=== PATIENT | male | born 1980 | race Caucasian/White ===

== ENCOUNTER 2024-11-28 18:00 | Inpatient (IN) ==
[2024-11-28] MEDS: SODIUM CHLORIDE 0.9% 1,000 ML IV SCH (18:41)
[2024-11-28 18:42] LABS: Appearance Urine Clear (Clear); Glucose Urine UA Negative (Negative)
[2024-11-28 19:49] LABS: Chlamydia pneumoniae PCR Not Detected (NotDetected); Coronavirus 229E PCR Not Detected (NotDetected); Coronavirus CoV-2 (COVID19)PCR Not Detected (NotDetected); Coronavirus HKU1 PCR Not Detected (NotDetected); Coronavirus NL63 PCR Not Detected (NotDetected); Coronavirus OC43PCR Not Detected (NotDetected); Human Metapneumovirus PCR Not Detected (NotDetected); Parainfluenza Virus 1 PCR Not Detected (NotDetected); Parainfluenza Virus 2 PCR Not Detected (NotDetected); Parainfluenza Virus 3 PCR Not Detected (NotDetected); Parainfluenza Virus 4 PCR Not Detected (NotDetected); Respiratory Syncytial VirusPCR Not Detected (NotDetected); Rhinovirus/Enterovirus PCR Not Detected (NotDetected)
[2024-11-28 19:50] LABS: Base Excess VBG 4.4 mEq/L; HCO3 VBG 29 mmol/L; Oxygen Saturation VBG < 60.0 %; PCO2 VBG 43 mmHg (38-50); PO2 VBG 31 mmHg; pH VBG 7.44 (7.36-7.41)
[2024-11-28 19:58] LABS: Hematocrit (blood only) 41.5 % (42.0-52.0); Hemoglobin 14.5 g/dl (14.0-18.0); Immature Granulocytes # (auto) 0.16 K/uL (0.01-0.20); Immature Granulocytes % (auto) 1.0 %; Mean Corpuscular Hemoglobin 27.3 pg (25.0-34.0); Mean Corpuscular Volume 78.0 fL (80.0-100.0); Platelet Count 170 K/uL (130-400); RDW Standard Deviation 38.2 fL (36.4-46.3); Red Blood Count 5.32 M/uL (4.70-6.10); White Blood Count 15.71 K/ul (4.8-10.8)
--- NOTE | 2024-11-28 20:10 | XRay Report ---
EXAM: Portable AP chest radiograph TECHNIQUE: AP portable radiograph of the chest was obtained. INDICATION: Shortness of breath Comparison: None FINDINGS: LINES and TUBES: None CARDIOVASCULAR: Cardiac silhouette is mildly enlarged in size. LUNGS/PLEURA: No focal consolidation identified. Mild central pulmonary vascular congestion. Patchy left greater than right bibasilar densities may represent atelectasis though difficult to exclude mild pneumonia. No significant pleural fluid. No discernible pneumothorax. OSSEOUS/OTHER: No displaced acute osseous process identified. IMPRESSION: Patchy left greater than right bibasilar densities may represent atelectasis though difficult to exclude mild pneumonia. Electronically signed by Ren Monahan 11-28-2024 8:10 PM
[2024-11-28 20:17] LABS: Alanine Aminotransferase 42.0 U/L (7-52); Albumin Level 4.5 gm/dl (3.4-5.0); Alkaline Phosphatase 85.0 U/L (34-104); Anion Gap 9.0 (3-11); Bilirubin,Total 0.7 mg/dl (0.2-1.0); Blood Urea Nitrogen 10.0 mg/dl (6-23); Calcium 9.0 mg/dl (8.6-10.3); Carbon Dioxide 26.0 mmol/L (21-32); Chloride 102.0 mmol/L (98-107); Creatinine Clr Calc Pharmacy 109.9 ml/min; Glucose 119.0 mg/dl (70-99(Fasting)); Magnesium 1.4 mg/dl (1.7-2.4); Potassium 3.6 mmol/L (3.5-5.1); Sodium 137.0 mmol/L (136-145); Total Protein 7.8 gm/dl (6.0-8.3)
[2024-11-28 20:28] LABS: INR 1.0 (0.9-1.1); Partial Thromboplastin Time 25 Seconds (21-31); Prothrombin Time 10.7 Seconds (9.0-12.0)
[2024-11-28] MEDS: cefTRIAXone SODIUM 2,000 MG/50 ML BAG IV STA (20:37)
[2024-11-28] MEDS: AZITHROMYCIN 250 MG TAB PO ONE (20:37)
[2024-11-28] MEDS: MAGNESIUM SULFATE / D5W 1 GM/100 ML BAG IV SCH (20:37)
--- NOTE | 2024-11-28 20:38 | CT Scan Report ---
EXAMINATION: Head CT without CLINICAL HISTORY: Headache onset 1 hour ago PRIORS: None TECHNIQUE: Contiguous axial images were obtained through the head without the use of intravenous contrast. Sagittal and coronal reformations are supplied. FINDINGS: Appropriate parenchymal volume is noted. Gaming-white differentiation is preserved. No edema or midline shift. No intra-axial or extra-axial hemorrhage. Ventricles are normal in size and configuration. Brainstem and cerebellum have a normal appearance. Calvarium unremarkable. Paranasal sinuses and mastoid air cells are well-pneumatized. Globes are intact. No retrobulbar abnormality. IMPRESSION: No CT evidence of an acute intracranial abnormality. If clinically appropriate, brain MRI could be obtained as appropriate. Electronically signed by Nohelia Babb 11-28-2024 8:38 PM
[2024-11-28] MEDS: SODIUM CHLORIDE 0.9% 1,000 ML IV ONE (20:46)
[2024-11-28] MEDS: SODIUM CHLORIDE 0.9% 500 ML IV ONE (20:46)
--- NOTE | 2024-11-28 21:23 | History & Physical Report ---
Date of Service November 28, 2024 Assessment & Plan (1) Sepsis due to pneumonia: (2) Hypomagnesemia: (3) Sinus tachycardia: (4) Lactic acidosis: Plan The patient is a 44-year-old male with no significant past medical history. The patient presented to the emergency department with acute onset of shakes, fevers, chills, headaches, palpitations, and feeling of almost passing out that developed earlier in the afternoon today. 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 He reports that he has had sick exposures recently. He denies any cough. He does have shortness of breath and dyspnea on exertion. He reports feeling somewhat improved after initial treatment in the emergency department. Workup in the emergency department included a chest x-ray which showed bibasilar infiltrates. Temperature was 39.1, potassium 3.6, magnesium 1.4, lactate 2.6, and WBC 15.71. He reports having drank 530 mg of caffeine and a 3-hour interval. The patient was started on ceftriaxone 2 g IV, azithromycin 5 mg p.o., and normal saline 2.5 L fluid bolus, and magnesium sulfate 2 g IV. He was then referred for evaluation for admission to the [facility]. Sepsis due to pneumonia- Acute onset of symptoms that began about 7 hours ago. Chest x-ray with bibasilar infiltrates Temperature 39.1, lactate 2.6, WBC 15.71, and heart rate 110s to 120s. Ceftriaxone 2 g IV every 24 hours, with first dose having been given in the ED Azithromycin 500 milligrams p.o. daily, with first dose having been given in the ED DuoNebs every 2 hours as needed To receive 2.5 L normal saline bolus per septic protocol Continue IV fluid rehydration with normal saline + KCl 20 mEq at 100 mL/h x 1 L Acetaminophen 650 mg by mouth every 6 hours as needed for mild pain or fever Admit to monitored bed Hypomagnesemia- Magnesium 1.4 on admission Receiving 2 g magnesium sulfate IV from the ED Will give an additional gram for total of 3 g IV Repeat repeat laboratories in the a.m. Sinus tachycardia- Heart rate in the 110s to 120s. Likely combination of sepsis, hypomagnesemia, caffeine intake, and borderline low potassium Admitted to monitored bed The patient is supposed to be moving to a new [place] in 2 days on Friday. He was advised that even if he is discharged from the hospital and time to move, he should not be doing any heavy activity for several days. History of Present Illness Chief Complaint: The patient presented to the emergency department with acute onset of shakes, fevers, chills and feeling of almost passing out and developed earlier in the afternoon today. 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 He reports that he has had sick exposures recently. He denies any cough. He does have shortness of breath and dyspnea on exertion. He reports feeling somewhat improved after getting IV fluids in the emergency department. Primary Care Provider: Rishabh Mathews MD The patient is a 44-year-old male with no significant past medical history. The patient presented to the emergency department with acute onset of shakes, fevers, chills, headaches, palpitations, and feeling of almost passing out that developed earlier in the afternoon today. 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 He reports that he has had sick exposures recently. He denies any cough. He does have shortness of breath and dyspnea on exertion. He reports feeling somewhat improved after initial treatment in the emergency department. Workup in the emergency department included a chest x-ray which showed bibasilar infiltrates. Temperature was 39.1, potassium 3.6, magnesium 1.4, lactate 2.6, and WBC 15.71. He reports having drank 530 mg of ca ffeine and a 3-hour interval. The patient was started on ceftriaxone 2 g IV, azithromycin 5 mg p.o., and normal saline 2.5 L fluid bolus, and magnesium sulfate 2 g IV. He was then referred for evaluation for admission to the [facility] Past Med/Surg History Problem List (Updated 11/28/24 @ 21:18 by Dayron Knox MD) Dehydration Lactic acidosis Sinus tachycardia Hypomagnesemia Sepsis due to pneumonia Social History Smoking Status: Never smoker Feels Safe at Home: Yes Review of Systems Review of Systems: The patient denies chest pain, cough, lower extremity swelling, sore throat, nausea, vomiting, diarrhea , constipation, abdominal pain, pelvic pain, blood in urine or stool, dysuria, urinary frequency or urgency, memory loss, loss of consciousness, rash, abnormal bruising or bleeding, imbalance, focal or generalized weakness, numbness or tingling in arms or legs, generalized arthralgias or myalgias, back or neck pain, or night sweats. The review of systems is otherwise negative other than for that already noted above, and at least 10 systems have been reviewed. Physical Exam Physical Exam: The patient is awake, alert and oriented 3, well developed and well nourished, normocephalic and atraumatic, lying in bed and in no acute distress. HEENT--PERRL, EOMI, mucous membranes and oropharynx mildly dry. Neck--supple. No JVD. No bruits. Thyroid normal, trachea midline, no adenopathy. Heart--normal S1 and S2. No murmurs, rubs or gallops. Lungs-- decreased breath sounds throughout, no respiratory distress, no accessory muscle use. Abdomen--normal bowel sounds and soft. Nontender. Nondistended, no hernias or masses, no organomegaly. Extremities--no cyanosis or clubbing. No edema. There are good distal pulses b/l. Dermatologic--normal skin turgor, normal color, no abnormal lymph nodes, no rash. Neurologic--cranial nerves II through XII grossly intact. Rheumatologic--normal range of motion. Psychiatric--normal affect. Results & Data Results & Data Vital Signs (Past 12 Hours) Vital Signs Temp Pulse Resp BP Pulse Ox O2 Del Method 11/28/24 18:47 97 Room Air 11/28/24 18:21 124 H 14 144/78 H 97 11/28/24 18:20 123 H 11/28/24 18:19 39.1 C H 126 H 16 144/78 H 95 Room Air Laboratory Results Laboratory Results WBC 15.71 K/ul (4.8-10.8) H 11/28/24 19:36 RBC 5.32 M/uL (4.70-6.10) 11/28/24 19:36 Hgb 14.5 g/dl (14.0-18.0) 11/28/24 19:36 Hct 41.5 % (42.0-52.0) L 11/28/24 19:36 MCV 78.0 fL (80.0-100.0) L 11/28/24 19:36 MCH 27.3 pg (25.0-34.0) 11/28/24 19:36 MCHC 34.9 g/dL (32.0-36.0) 11/28/24 19:36 RDW Std Deviation 38.2 fL (36.4-46.3) 11/28/24 19:36 RDW Coeff of Jessica 13.7 % (11.5-14.5) 11/28/24 19:36 Plt Count 170 K/uL (130-400) 11/28/24 19:36 MPV 10.3 fL (9.4-12.4) 11/28/24 19:36 Immature Gran % (Auto) 1.0 % 11/28/24 19:36 Neut % (Auto) 89.0 % 11/28/24 19:36 Lymph % (Auto) 4.8 % 11/28/24 19:36 [place] % (Auto) 4.6 % 11/28/24 19:36 Eos % (Auto) 0.3 % 11/28/24 19:36 Baso % (Auto) 0.3 % 11/28/24 19:36 Neut # (Auto) 13.99 K/uL (1.40-6.50) H 11/28/24 19:36 Lymph # (Auto) 0.75 K/uL (1.20-3.40) L 11/28/24 19:36 [place] # (Auto) 0.72 K/uL (0.11-0.59) H 11/28/24 19:36 Eos # (Auto) 0.04 K/uL (0.00-0.50) 11/28/24 19:36 Baso # (Auto) 0.05 K/uL (0.00-0.20) 11/28/24 19:36 Immature Gran # (Auto) 0.16 K/uL (0.01-0.20) 11/28/24 19:36 PT 10.7 Seconds (9.0-12.0) 11/28/24 19:36 INR 1.0 (0.9-1.1) 11/28/24 19:36 APTT 25 Seconds (21-31) 11/28/24 19:36 PTT Ratio 0.9 11/28/24 19:36 VBG pH 7.44 (7.36-7.41) H 11/28/24 19:36 VBG pCO2 43 mmHg (38-50) 11/28/24 19:36 VBG pO2 31 mmHg 11/28/24 19:36 VBG HCO3 29 mmol/L 11/28/24 19:36 VBG O2 Saturation < 60.0 % 11/28/24 19:36 VBG Base Excess 4.4 mEq/L 11/28/24 19:36 Sodium 137 mmol/L (136-145) 11/28/24 19:36 Potassium 3.6 mmol/L (3.5-5.1) 11/28/24 19:36 Chloride 102 mmol/L (98-107) 11/28/24 19:36 Carbon Dioxide 26 mmol/L (21-32) 11/28/24 19:36 Anion Gap 9 (3-11) 11/28/24 19:36 BUN 10 mg/dl (6-23) 11/28/24 19:36 Creatinine 1.22 mg/dl (0.6-1.4) 11/28/24 19:36 Est Cr Clr Drug Dosing 109.9 ml/min 11/28/24 19:36 eGFR 75.44 11/28/24 19:36 BUN/Creatinine Ratio 8.2 (10-20) L 11/28/24 19:36 Glucose 119 mg/dl (70-99(Fasting)) H 11/28/24 19:36 Lactate 2.6 mmol/L (0.4-2.0) H* 11/28/24 19:36 Calcium 9.0 mg/dl (8.6-10.3) 11/28/24 19:36 Magnesium 1.4 mg/dl (1.7-2.4) L 11/28/24 19:36 Total Bilirubin 0.7 mg/dl (0.2-1.0) 11/28/24 19:36 Direct Bilirubin 0.1 mg/dl (0-0.2) 11/28/24 19:36 AST 29 U/L (13-39) 11/28/24 19:36 ALT 42 U/L (7-52) 11/28/24 19:36 Alkaline Phosphatase 85 U/L (34-104) 11/28/24 19:36 Troponin I High Sens 19.0 pg/ml (0-20) 11/28/24 19:36 Total Protein 7.8 gm/dl (6.0-8.3) 11/28/24 19:36 Albumin 4.5 gm/dl (3.4-5.0) 11/28/24 19:36 Urine Color Yellow 11/28/24 Unknown Urine Appearance Clear (Clear) 11/28/24 Unknown Urine pH 7.0 (4.5-7.5) 11/28/24 Unknown Ur Specific [place] 1.018 (1.000-1.030) 11/28/24 Unknown Urine Protein Negative (Negative) 11/28/24 Unknown Urine Glucose (UA) Negative (Negative) 11/28/24 Unknown Urine Ketones Negative (Negative) 11/28/24 Unknown Urine Blood Negative (Negative) 11/28/24 Unknown Urine Nitrite Negative (Negative) 11/28/24 Unknown Urine Bilirubin Negative (Negative) 11/28/24 Unknown Urine Urobilinogen Negative (Negative) 11/28/24 Unknown Ur Leukocyte Esterase Negative (Negative) 11/28/24 Unknown Urine Comment 11/28/24 Unknown Adenovirus (PCR) Not Detected (NotDetected) 11/28/24 18:50 B. pertussis DNA (PCR) Not Detected (NotDetected) 11/28/24 18:50 B.parapertussis DNA PCR Not Detected (NotDetected) 11/28/24 18:50 C. pneumoniae DNA (PCR) Not Detected (NotDetected) 11/28/24 18:50 Coronavirus OC43 (PCR) Not Detected (NotDetected) 11/28/24 18:50 Coronavirus HKU1 (PCR) Not Detected (NotDetected) 11/28/24 18:50 Coronavirus 229E (PCR) Not Detected (NotDetected) 11/28/24 18:50 SARS-CoV-2 (PCR) Not Detected (NotDetected) 11/28/24 18:50 Coronavirus NL63 (PCR) Not Detected (NotDetected) 11/28/24 18:50 Human Metapneumovir PCR Not Detected (NotDetected) 11/28/24 18:50 Influenza Type A (PCR) Not Detected (NotDetected) 11/28/24 18:50 Influenza Type B (PCR) Not Detected (NotDetected) 11/28/24 18:50 M. pneumoniae (PCR) Not Detected (NotDetected) 11/28/24 18:50 Parainfluenza 1 (PCR) Not Detected (NotDetected) 11/28/24 18:50 Parainfluenza 2 (PCR) Not Detected (NotDetected) 11/28/24 18:50 Parainfluenza 3 (PCR) Not Detected (NotDetected) 11/28/24 18:50 Parainfluenza 4 (PCR) Not Detected (NotDetected) 11/28/24 18:50 RSV (PCR) Not Detected (NotDetected) 11/28/24 18:50 Entero/Rhino (PCR) Not Detected (NotDetected) 11/28/24 18:50 Impressions Chest X-Ray 11/28/24 18:28 EXAM: Portable AP chest radiograph TECHNIQUE: AP portable radiograph of the chest was obtained. INDICATION: Shortness of breath Comparison: None FINDINGS: LINES and TUBES: None CARDIOVASCULAR: Cardiac silhouette is mildly enlarged in size. LUNGS/PLEURA: No focal consolidation identified. Mild central pulmonary vascular congestion. Patchy left greater than right bibasilar densities may represent atelectasis though difficult to exclude mild pneumonia. No significant pleural fluid. No discernible pneumothorax. OSSEOUS/OTHER: No displaced acute osseous process identified. IMPRESSION: Patchy left greater than right bibasilar densities may represent atelectasis though difficult to exclude mild pneumonia. Electronically signed by Ren Monahan 11-28-2024 8:[address] 11/28/24 18:36 EXAMINATION: Head CT without CLINICAL HISTORY: Headache onset 1 hour ago PRIORS: None TECHNIQUE: Contiguous axial images were obtained through the head without the use of intravenous contrast. Sagittal and coronal reformations are supplied. FINDINGS: Appropriate parenchymal volume is noted. Gaming-white differentiation is preserved. No edema or midline shift. No intra-axial or extra-axial hemorrhage. Ventricles are normal in size and configuration. Brainstem and cerebellum have a normal appearance. Calvarium unremarkable. Paranasal sinuses and mastoid air cells are well-pneumatized. Globes are intact. No retrobulbar abnormality. IMPRESSION: No CT evidence of an acute intracranial abnormality. If clinically appropriate, brain MRI could be obtained as appropriate. Electronically signed by Nohelia Babb 11-28-2024 8:38 PM Code Status & VTE Plan Code Status Full code VTE Prophylaxis Plan VTE Prophylaxis will be ordered: Yes PG Care Time/CCT Total # of Minutes Spent Total Time Spent with Patient: Total time spent is greater than 50% in coordination of care (as documented) at patient's floor/unit and/or counseling patient: Coding Level of Care Code 45286 INT INP/OBS CARE 3/75MIN Diagnoses Sepsis due to pneumonia J18.9; A41.9 Hypomagnesemia E83.42 Sinus tachycardia R00.0 Lactic acidosis E87.20
[2024-11-28] MEDS ORDERED: ALBUT/IPRATROP 3MG/0.5MG NEB 3 ML VIAL NEB PRN (21:38)
[2024-11-28] MEDS ORDERED: ONDANSETRON INJ 2 MG/ML 2 ML VIAL IV PRN (21:38)
[2024-11-28] MEDS: HEPARIN SOD 5,000 UNIT/0.5 ML VIAL SQ SCH (22:13)
[2024-11-28] MEDS: NSS + 20MEQ KCL 20 MEQ/1,000 ML BAG IV SCH (22:23)
[2024-11-28] MEDS: MAGNESIUM SULFATE / D5W 1 GM/100 ML BAG IV ONE (23:35)
--- NOTE | 2024-11-29 00:26 | Emergency Department Note ---
History of Present Illness General Chief complaint: Syncope (Near Syncope) Stated complaint: NEAR SYNCOPE, FEVER, DIZZY Time Seen by Provider: 11/28/24 18:27 History of Present Illness Provider complaint: Lightheaded 44-year-old male presents emergency department for feeling lightheaded. Patient states today he felt very lightheaded and felt like his heart was racing. Patient reports headache. He reports he has not been sleeping enough.. Patient reports that today he drank a 5-hour energy and then drank a black rifle energy drink. He started feeling his heart was racing like he was going to pass out so he came to the emergency department. Patient also reports starting to feel like he had a fever today and states he was around multiple sick people. Patient was febrile for EMS and was given Tylenol prehospital. Home Medications Medication Instructions Recorded Confirmed Type multivitamin 1 cap PO DAILY 11/28/24 11/28/24 History Allergies Allergy/AdvReac Type Severity Reaction Status Date / Time amoxicillin Allergy Nausea Unverified 11/28/24 21:28 Past Med/Surg History Problem List (Updated 11/29/24 @ 00:26 by Jethro Pastor MD) Dehydration Lactic acidosis Sinus tachycardia Hypomagnesemia (Acute) Sepsis due to pneumonia (Acute) Social History Smoking Status: Never smoker Feels Safe at Home: Yes Physical Exam Vital Signs Vital Signs - 24 hr 11/28/24 18:19 11/28/24 18:20 11/28/24 18:21 Temperature 39.1 C H Temperature Source Oral Pulse Rate 126 H 123 H 124 H Respiratory Rate 16 14 Respiratory Effort / Characteristics Non-Labored Spontaneous Respiratory Depth Normal Respiratory Pattern Regular Blood Pressure 144/78 H 144/78 H Blood Pressure Mean 100 100 Pulse Oximetry 95 97 Oxygen Delivery Method Room Air Sepsis Recent Fever Within 48 Hours Yes Sepsis New/Unexplained Change in Mental Status No Sepsis Action Taken by Nursing Physician Notified 11/28/24 18:47 Temperature Temperature Source Pulse Rate Respiratory Rate Respiratory Effort / Characteristics Respiratory Depth Respiratory Pattern Blood Pressure Blood Pressure Mean Pulse Oximetry 97 Oxygen Delivery Method Room Air Sepsis Recent Fever Within 48 Hours Sepsis New/Unexplained Change in Mental Status Sepsis Action Taken by Nursing Physical Exam GENERAL: He is oriented to person, place, and time. He appears well-developed and well-nourished. He does not appear distressed. HENT: Exam performed. - Head: Normocephalic and atraumatic. - Right Ear: External ear normal. No mastoid erythema - Left Ear: External ear normal. No mastoid erythema - Mouth/Throat: The oropharynx is clear and moist. No trismus in the jaw. No dental abscesses or uvula swelling. No oropharyngeal exudate or tonsillar abscesses. EYES: Conjunctivae and EOM are normal. Pupils are equal, round, and reactive to light. Right eye exhibits no discharge. Left eye exhibits no discharge. No scleral icterus. NECK: Normal range of motion. Neck supple. No JVD present. No rigidity. No tracheal deviation and normal range of motion present. CV: Tachycardic rate, regular rhythm, normal heart sounds and intact distal pulses. There is no peripheral edema. Palpable radial pulses bue. PULM/CHEST: Effort normal and breath sounds normal. No respiratory distress. No stridor. He has no wheezes. He has no rales. ABD: The abdomen is soft. He has no distension. No mass is present. There is no tenderness. There is no rebound, no guarding. MUSC/SKEL: Normal range of motion. There is no peripheral edema, tenderness or deformity. LYMPH: No cervical adenopathy. NEURO: He is alert and oriented to person, place, and time. He has normal strength. No cranial nerve deficit or sensory deficit. Coordination and gait normal. GCS eye subscore is 4. GCS verbal subscore is 5. GCS motor subscore is 6. Cerebellar tests wnl. SKIN: Skin is warm and dry. He is not diaphoretic. PSYCH: He has a normal mood and affect. Behavior is normal. Judgment and thought content normal. Course Course 1826: The patient was evaluated in room B10. A complete history and physical exam was performed Cardiac monitoring: An order was placed for continuous cardiac monitoring. The monitor shows a rate of 120 with sinus tachycardia rhythm interpreted by or 2024: Vital signs stable. Labs show leukocytosis of 15.7. Lactic acid 2.6. Chest x-ray shows pneumonia. Patient treated with 30 cc/kg normal saline bolus based off the patient's ideal body weight and was also treated with antibiotics for community-acquired pneumonia Rocephin and azithromycin. Patient's magnesium 1.4 magnesium repletion started the emergency department. Patient be admitted to the [facility]ist team Dr. Magana notified. Administered Medications Heparin Sodium (Porcine) (Heparin Sod 5,000 Unit/0.5 Ml Vial) 5,000 units SQ Q12 TELLY Stop: 12/28/24 21:37 Last Admin: 11/28/24 22:13 Dose: 5,000 units Documented By: AARON Potassium Chloride/Sodium Chloride (Normal Saline W/20 Meq Kcl) 20 meq in 1,000 mls @ 100 mls/hr IV .Q10H TELLY Stop: 11/29/24 07:37 Last Admin: 11/28/24 22:23 Dose: 100 mls/hr Documented By: AARON Discontinued Medications Azithromycin (Azithromycin 250 Mg Tab) 500 mg PO NOW ONE Stop: 11/28/24 20:20 Last Admin: 11/28/24 20:37 Dose: 500 mg Documented By: MISAEL Sodium Chloride (Nss) 1,000 mls @ 999 mls/hr IV .Q1H1M TELLY Stop: 11/28/24 19:30 Last Infusion: 11/28/24 19:52 Dose: Infused Documented By: Admin: 11/28/24 18:41 Dose: 999 mls/hr Documented By: renata Sodium Chloride (Nss) 500 mls @ 999 mls/hr IV .Q31M ONE Stop: 11/28/24 20:49 Last Infusion: 11/28/24 22:18 Dose: Infused Documented By: Admin: 11/28/24 20:46 Dose: 999 mls/hr Documented By: MISAEL Sodium Chloride (Nss) 1,000 mls @ 999 mls/hr IV .Q1H1M ONE Stop: 11/28/24 21:19 Last Infusion: 11/28/24 22:10 Dose: Infused Documented By: Admin: 11/28/24 20:46 Dose: 999 mls/hr Documented By: MISAEL Ceftriaxone Sodium (Rocephin) 2,000 mg in 50 mls @ 100 mls/hr IV NOW STA Stop: 11/28/24 20:48 Last Infusion: 11/28/24 22:10 Dose: Infused Documented By: Admin: 11/28/24 20:37 Dose: 100 mls/hr Documented By: MISAEL Magnesium Sulfate/Dextrose (Magnesium Sulfate / D5w) 1 gm in 100 mls @ 100 mls/hr IV Q1H TELLY Stop: 11/28/24 22:20 Last Admin: 11/28/24 22:09 Dose: 100 mls/hr Documented By: Infusion: 11/28/24 22:09 Dose: Infused Documented By: Admin: 11/28/24 20:37 Dose: 100 mls/hr Documented By: MISAEL Magnesium Sulfate/Dextrose (Magnesium Sulfate / D5w) 1 gm in 100 mls @ 50 mls/hr IV ONE ONE Stop: 11/29/24 00:20 Last Admin: 11/28/24 23:35 Dose: 50 mls/hr Documented By: LUANN Medical Decision Making Laboratory Data Attestation: I reviewed the patient's lab results. 11/28/24 19:36 11/28/24 19:36 Lab Results 11/28/24 11/28/24 Range/Units 18:50 19:36 WBC 15.71 H (4.8-10.8) K/ul RBC 5.32 (4.70-6.10) M/uL Hgb 14.5 (14.0-18.0) g/dl Hct 41.5 L (42.0-52.0) % MCV 78.0 L (80.0-100.0) fL MCH 27.3 (25.0-34.0) pg MCHC 34.9 (32.0-36.0) g/dL RDW Std Deviation 38.2 (36.4-46.3) fL RDW Coeff of Jessica 13.7 (11.5-14.5) % Plt Count 170 (130-400) K/uL MPV 10.3 (9.4-12.4) fL Immature Gran % (Auto) 1.0 % Neut % (Auto) 89.0 % Lymph % (Auto) 4.8 % [place] % (Auto) 4.6 % Eos % (Auto) 0.3 % Baso % (Auto) 0.3 % Neut # (Auto) 13.99 H (1.40-6.50) K/uL Lymph # (Auto) 0.75 L (1.20-3.40) K/uL [place] # (Auto) 0.72 H (0.11-0.59) K/uL Eos # (Auto) 0.04 (0.00-0.50) K/uL Baso # (Auto) 0.05 (0.00-0.20) K/uL Immature Gran # (Auto) 0.16 (0.01-0.20) K/uL PT 10.7 (9.0-12.0) Seconds INR 1.0 (0.9-1.1) APTT 25 (21-31) Seconds PTT Ratio 0.9 VBG pH 7.44 H (7.36-7.41) VBG pCO2 43 (38-50) mmHg VBG pO2 31 mmHg VBG HCO3 29 mmol/L VBG O2 Saturation < 60.0 % VBG Base Excess 4.4 mEq/L Sodium 137 (136-145) mmol/L Potassium 3.6 (3.5-5.1) mmol/L Chloride 102 (98-107) mmol/L Carbon Dioxide 26 (21-32) mmol/L Anion Gap 9 (3-11) BUN 10 (6-23) mg/dl Creatinine 1.22 (0.6-1.4) mg/dl Est Cr Clr Drug Dosing 109.9 ml/min eGFR 75.44 BUN/Creatinine Ratio 8.2 L (10-20) Glucose 119 H (70-99(Fasting)) mg/dl Lactate 2.6 H* (0.4-2.0) mmol/L Calcium 9.0 (8.6-10.3) mg/dl Magnesium 1.4 L (1.7-2.4) mg/dl Total Bilirubin 0.7 (0.2-1.0) mg/dl Direct Bilirubin 0.1 (0-0.2) mg/dl AST 29 (13-39) U/L ALT 42 (7-52) U/L Alkaline Phosphatase 85 (34-104) U/L Troponin I High Sens 19.0 (0-20) pg/ml Total Protein 7.8 (6.0-8.3) gm/dl Albumin 4.5 (3.4-5.0) gm/dl Procalcitonin 3.76 H (0-0.5) ng/ml Adenovirus (PCR) Not Detected (NotDetected) B. pertussis DNA (PCR) Not Detected (NotDetected) B.parapertussis DNA PCR Not Detected (NotDetected) C. pneumoniae DNA (PCR) Not Detected (NotDetected) Coronavirus OC43 (PCR) Not Detected (NotDetected) Coronavirus HKU1 (PCR) Not Detected (NotDetected) Coronavirus 229E (PCR) Not Detected (NotDetected) SARS-CoV-2 (PCR) Not Detected (NotDetected) Coronavirus NL63 (PCR) Not Detected (NotDetected) Human Metapneumovir PCR Not Detected (NotDetected) Influenza Type A (PCR) Not Detected (NotDetected) Influenza Type B (PCR) Not Detected (NotDetected) M. pneumoniae (PCR) Not Detected (NotDetected) Parainfluenza 1 (PCR) Not Detected (NotDetected) Parainfluenza 2 (PCR) Not Detected (NotDetected) Parainfluenza 3 (PCR) Not Detected (NotDetected) Parainfluenza 4 (PCR) Not Detected (NotDetected) RSV (PCR) Not Detected (NotDetected) Entero/Rhino (PCR) Not Detected (NotDetected) Imaging Data Radiologist's Impression: Chest X-Ray 11/28/24 18:28 EXAM: Portable AP chest radiograph TECHNIQUE: AP portable radiograph of the chest was obtained. INDICATION: Shortness of breath Comparison: None FINDINGS: LINES and TUBES: None CARDIOVASCULAR: Cardiac silhouette is mildly enlarged in size. LUNGS/PLEURA: No focal consolidation identified. Mild central pulmonary vascular congestion. Patchy left greater than right bibasilar densities may represent atelectasis though difficult to exclude mild pneumonia. No significant pleural fluid. No discernible pneumothorax. OSSEOUS/OTHER: No displaced acute osseous process identified. IMPRESSION: Patchy left greater than right bibasilar densities may represent atelectasis though difficult to exclude mild pneumonia. Electronically signed by Ren Monahan 11-28-2024 8:[address] 11/28/24 18:36 EXAMINATION: Head CT without CLINICAL HISTORY: Headache onset 1 hour ago PRIORS: None TECHNIQUE: Contiguous axial images were obtained through the head without the use of intravenous contrast. Sagittal and coronal reformations are supplied. FINDINGS: Appropriate parenchymal volume is noted. Gaming-white differentiation is preserved. No edema or midline shift. No intra-axial or extra-axial hemorrhage. Ventricles are normal in size and configuration. Brainstem and cerebellum have a normal appearance. Calvarium unremarkable. Paranasal sinuses and mastoid air cells are well-pneumatized. Globes are intact. No retrobulbar abnormality. IMPRESSION: No CT evidence of an acute intracranial abnormality. If clinically appropriate, brain MRI could be obtained as appropriate. Electronically signed by Nohelia Babb 11-28-2024 8:38 PM ECG Data Attestation: I personally reviewed and interpreted this ECG as follows: Rate (beats per minute): 124 Rhythm: + sinus tachycardia ECG Intervals/blocks: + Normal CT and + Normal QT-c ECG ST segments: + Normal ST segments Additional Comments: QRS 74 MDM Narrative 1827: The patient was evaluated in room B10. A complete history and physical exam was performed Cardiac monitoring: An order was placed for continuous cardiac monitoring. The monitor shows a rate of 120 with sinus tachycardia rhythm interpreted by me 2024: Vital signs stable. Labs show leukocytosis of 15.7. Lactic acid 2.6. Chest x-ray shows pneumonia. Patient treated with 30 cc/kg normal saline bolus based off the patient's ideal body weight and was also treated with antibiotics for community-acquired pneumonia Rocephin and azithromycin. Patient's magnesium 1.4 magnesium repletion started the emergency department. Patient be admitted to the [facility]ist team Dr. Magana notified. Impression & Plan Sepsis due to pneumonia, Hypomagnesemia Discharge Plan Visit Data Chief Complaint: Syncope (Near Syncope) Stated Complaint: NEAR SYNCOPE, FEVER, DIZZY ED Provider: Jethro Pastor Discharge Problem: Sepsis due to pneumonia, Hypomagnesemia Patient Disposition: Admitted As Inpatient Condition: Fair Discharge Instructions Interventions: ED Discharge Assessment Last Done: 11/28/24 21:39
[2024-11-29] MEDS: ACETAMINOPHEN 325 MG TAB PO PRN (02:20)
[2024-11-29 06:40] LABS: Hematocrit (blood only) 35.7 % (42.0-52.0); Hemoglobin 13.0 g/dl (14.0-18.0); Immature Granulocytes # (auto) 0.38 K/uL (0.01-0.20); Immature Granulocytes % (auto) 1.8 %; Mean Corpuscular Hemoglobin 28.6 pg (25.0-34.0); Mean Corpuscular Volume 78.6 fL (80.0-100.0); Platelet Count 154 K/uL (130-400); RDW Standard Deviation 39.7 fL (36.4-46.3); Red Blood Count 4.54 M/uL (4.70-6.10); White Blood Count 21.04 K/ul (4.8-10.8)
[2024-11-29 07:09] LABS: Albumin Level 3.8 gm/dl (3.4-5.0); Anion Gap 5.0 (3-11); Blood Urea Nitrogen 11.0 mg/dl (6-23); Calcium 8.2 mg/dl (8.6-10.3); Carbon Dioxide 24.0 mmol/L (21-32); Chloride 109.0 mmol/L (98-107); Creatinine Clr Calc Pharmacy 114.5 ml/min; Glucose 119.0 mg/dl (70-99(Fasting)); Magnesium 2.0 mg/dl (1.7-2.4); Potassium 3.8 mmol/L (3.5-5.1); Sodium 138.0 mmol/L (136-145)
[2024-11-29] MEDS: cefTRIAXone SODIUM 2,000 MG/50 ML BAG IV SCH (08:15)
--- NOTE | 2024-11-29 10:53 | Hospitalist Progress Note ---
Date of Service November 29, 2024 Assessment & Plan (1) Sepsis due to pneumonia: (2) Hypomagnesemia: (3) Sinus tachycardia: (4) Lactic acidosis: Plan The patient is a 44-year-old male with no significant past medical history. The patient presented to the emergency department with acute onset of shakes, fevers, chills, headaches, palpitations, and feeling of almost passing out that developed earlier in the afternoon today. 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 He reports that he has had sick exposures recently. He denies any cough. He does have shortness of breath and dyspnea on exertion. He reports feeling somewhat improved after initial treatment in the emergency department. Workup in the emergency department included a chest x-ray which showed bibasilar infiltrates. Temperature was 39.1, potassium 3.6, magnesium 1.4, lactate 2.6, and WBC 15.71. He reports having drank 530 mg of caffeine and a 3-hour interval. The patient was started on ceftriaxone 2 g IV, azithromycin 5 mg p.o., and normal saline 2.5 L fluid bolus, and magnesium sulfate 2 g IV. He was then referred for evaluation for admission to the [facility] service. #Sepsis due to pneumonia -Ceftriaxone 2 g IV every 24 hours -Azithromycin 500 milligrams p.o. daily x3 minimum -DuoNebs every 2 hours as needed -Trend lactate to normal, additional bolus this AM -Acetaminophen 650 mg by mouth every 6 hours as needed for mild pain or fever -RT and nebs PRN #Tachycardia -likely secondary to SIRS, continue to monitor -Pressures stable #Hypomagnesemia -normalized, check with AM labs #FEN -Normal diet #Dispo -1-2 days to transition or oral abx and follow culutres -The patient is supposed to be moving [place] a new [place] in 2 days on Friday. He was advised that even if he is discharged from the hospital and time to move, he should not be doing any heavy activity for at least a week after DC. Admission and Anticipated Discharge Date Admission Date: November 28, 2024 Subjective Subjective feeling much better this morning. Was able to eat breakfast. Has not been up walking very much as of yet. Yeah no she is doing chills since early last night. States he has been under an enormous amount of stress recently. 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 Normal urine and no bowel issues. We discussed his antibiotic course and likely discharge. Physical Exam Constitutional: Alert and oriented no apparent distress Eyes: Sclera clear ENMT: Mucous membranes moist Respiratory: Clear to auscultation with good air movement bilaterally Cardiovascular: Tachycardic, regular, no murmur Gastrointestinal (Abdomen): Normal bowel Skin: Chronic erythematous rash in the left lower quintana with chronic swelling is unchanged. Results & Data Results & Data Vital Signs (Past 12 Hours) Vital Signs Temp Pulse Pulse Resp BP Pulse Ox Pulse Ox 11/29/24 08:00 11/29/24 08:00 112 H 11/29/24 07:56 36.7 C 93 H 18 124/72 96 11/29/24 03:15 37.0 C 89 20 94 11/29/24 01:58 11/29/24 01:58 38.6 C H 108 H 20 139/56 L 99 11/29/24 01:00 111 H 20 129/73 97 11/29/24 00:00 107 H 18 96/68 L 96 11/28/24 23:45 97 11/28/24 23:13 112 H 11/28/24 23:00 110 H 22 123/78 97 O2 Del Method O2 Del Method 11/29/24 08:00 Room Air 11/29/24 08:00 11/29/24 07:56 Room Air 11/29/24 03:15 Room Air 11/29/24 01:58 Room Air 11/29/24 01:58 Room Air 11/29/24 01:00 Room Air 11/29/24 00:00 Room Air 11/28/24 23:45 Room Air 11/28/24 23:13 11/28/24 23:00 Room Air Laboratory Results 11/28/24 19:36 Aerobic Blood Culture - Pending Blood Anaerobic Blood Culture - Pending 11/28/24 19:36 Aerobic Blood Culture - Pending Blood Anaerobic Blood Culture - Pending 11/29/24 11/28/24 11/28/24 05:51 Unknown 21:45 WBC 21.04 H RBC 4.54 L Hgb 13.0 L Hct 35.7 L MCV 78.6 L MCH 28.6 MCHC 36.4 H RDW Std Deviation 39.7 RDW Coeff of Ejssica 14.0 Plt Count 154 MPV 10.0 Immature Gran % (Auto) 1.8 Neut % (Auto) 83.4 Lymph % (Auto) 7.3 [place] % (Auto) 7.3 Eos % (Auto) 0.0 Baso % (Auto) 0.2 Neut # (Auto) 17.54 H Lymph # (Auto) 1.54 [place] # (Auto) 1.53 H Eos # (Auto) 0.00 Baso # (Auto) 0.05 Immature Gran # (Auto) 0.38 H PT INR APTT PTT Ratio VBG pH VBG pCO2 VBG pO2 VBG HCO3 VBG O2 Saturation VBG Base Excess Sodium 138 Potassium 3.8 Chloride 109 H Carbon Dioxide 24 Anion Gap 5 BUN 11 Creatinine 1.24 Est Cr Clr Drug Dosing 114.5 eGFR 73.98 BUN/Creatinine Ratio 8.9 L Glucose 119 H Lactate 2.4 H* Calcium 8.2 L Phosphorus 1.7 L Magnesium 2.0 Total Bilirubin Direct Bilirubin AST ALT Alkaline Phosphatase Troponin I High Sens Total Protein Albumin 3.8 Procalcitonin Urine Color Yellow Urine Appearance Clear Urine pH 7.0 Ur Specific [place] 1.018 Urine Protein Negative Urine Glucose (UA) Negative Urine Ketones Negative Urine Blood Negative Urine Nitrite Negative Urine Bilirubin Negative Urine Urobilinogen Negative Ur Leukocyte Esterase Negative Urine Comment Adenovirus (PCR) B. pertussis DNA (PCR) B.parapertussis DNA PCR C. pneumoniae DNA (PCR) Coronavirus OC43 (PCR) Coronavirus HKU1 (PCR) Coronavirus 229E (PCR) SARS-CoV-2 (PCR) Coronavirus NL63 (PCR) Human Metapneumovir PCR Influenza Type A (PCR) Influenza Type B (PCR) M. pneumoniae (PCR) Parainfluenza 1 (PCR) Parainfluenza 2 (PCR) Parainfluenza 3 (PCR) Parainfluenza 4 (PCR) RSV (PCR) Entero/Rhino (PCR) 11/28/24 11/28/24 19:36 18:50 WBC 15.71 H RBC 5.32 Hgb 14.5 Hct 41.5 L MCV 78.0 L MCH 27.3 MCHC 34.9 RDW Std Deviation 38.2 RDW Coeff of Jessica 13.7 Plt Count 170 MPV 10.3 Immature Gran % (Auto) 1.0 Neut % (Auto) 89.0 Lymph % (Auto) 4.8 [place] % (Auto) 4.6 Eos % (Auto) 0.3 Baso % (Auto) 0.3 Neut # (Auto) 13.99 H Lymph # (Auto) 0.75 L [place] # (Auto) 0.72 H Eos # (Auto) 0.04 Baso # (Auto) 0.05 Immature Gran # (Auto) 0.16 PT 10.7 INR 1.0 APTT 25 PTT Ratio 0.9 VBG pH 7.44 H VBG pCO2 43 VBG pO2 31 VBG HCO3 29 VBG O2 Saturation < 60.0 VBG Base Excess 4.4 Sodium 137 Potassium 3.6 Chloride 102 Carbon Dioxide 26 Anion Gap 9 BUN 10 Creatinine 1.22 Est Cr Clr Drug Dosing 109.9 eGFR 75.44 BUN/Creatinine Ratio 8.2 L Glucose 119 H Lactate 2.6 H* Calcium 9.0 Phosphorus Magnesium 1.4 L Total Bilirubin 0.7 Direct Bilirubin 0.1 AST 29 ALT 42 Alkaline Phosphatase 85 Troponin I High Sens 19.0 Total Protein 7.8 Albumin 4.5 Procalcitonin 3.76 H Urine Color Urine Appearance Urine pH Ur Specific [place] Urine Protein Urine Glucose (UA) Urine Ketones Urine Blood Urine Nitrite Urine Bilirubin Urine Urobilinogen Ur Leukocyte Esterase Urine Comment Adenovirus (PCR) Not Detected B. pertussis DNA (PCR) Not Detected B.parapertussis DNA PCR Not Detected C. pneumoniae DNA (PCR) Not Detected Coronavirus OC43 (PCR) Not Detected Coronavirus HKU1 (PCR) Not Detected Coronavirus 229E (PCR) Not Detected SARS-CoV-2 (PCR) Not Detected Coronavirus NL63 (PCR) Not Detected Human Metapneumovir PCR Not Detected Influenza Type A (PCR) Not Detected Influenza Type B (PCR) Not Detected M. pneumoniae (PCR) Not Detected Parainfluenza 1 (PCR) Not Detected Parainfluenza 2 (PCR) Not Detected Parainfluenza 3 (PCR) Not Detected Parainfluenza 4 (PCR) Not Detected RSV (PCR) Not Detected Entero/Rhino (PCR) Not Detected PG Care Time/CCT Total # of Minutes Spent Total Time Spent with Patient: Total time spent is greater than 50% in coordination of care (as documented) at patient's floor/unit and/or counseling patient: Coding Level of Care Code 91379 SUB INP/OBS CARE 3/50MIN Diagnoses Sepsis due to pneumonia J18.9; A41.9 Hypomagnesemia E83.42 Sinus tachycardia R00.0 Lactic acidosis E87.20
[2024-11-29] MEDS: SODIUM CHLORIDE 0.9% 500 ML IV ONE (11:05)
[2024-11-30 07:31] LABS: Hematocrit (blood only) 36.7 % (42.0-52.0); Hemoglobin 12.4 g/dl (14.0-18.0); Immature Granulocytes # (auto) 0.06 K/uL (0.01-0.20); Immature Granulocytes % (auto) 0.5 %; Mean Corpuscular Hemoglobin 26.8 pg (25.0-34.0); Mean Corpuscular Volume 79.4 fL (80.0-100.0); Platelet Count 108 K/uL (130-400); RDW Standard Deviation 41.6 fL (36.4-46.3); Red Blood Count 4.62 M/uL (4.70-6.10); White Blood Count 12.87 K/ul (4.8-10.8)
[2024-11-30 07:50] LABS: Albumin Level 3.6 gm/dl (3.4-5.0); Anion Gap 4.0 (3-11); Blood Urea Nitrogen 12.0 mg/dl (6-23); Calcium 8.2 mg/dl (8.6-10.3); Carbon Dioxide 25.0 mmol/L (21-32); Chloride 109.0 mmol/L (98-107); Creatinine Clr Calc Pharmacy 116.2 ml/min; Glucose 104.0 mg/dl (70-99(Fasting)); Magnesium 2.0 mg/dl (1.7-2.4); Potassium 3.8 mmol/L (3.5-5.1); Sodium 138.0 mmol/L (136-145)
--- NOTE | 2024-11-30 13:35 | Hospitalist Progress Note ---
Date of Service November 30, 2024 Assessment & Plan (1) Sepsis due to pneumonia: (2) Hypomagnesemia: (3) Sinus tachycardia: (4) Lactic acidosis: Plan The patient is a 44-year-old male with no significant past medical history. The patient presented to the emergency department with acute onset of shakes, fevers, chills, headaches, palpitations, and feeling of almost passing out that developed earlier in the afternoon today. 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 He reports that he has had sick exposures recently. He denies any cough. He does have shortness of breath and dyspnea on exertion. He reports feeling somewhat improved after initial treatment in the emergency department. Workup in the emergency department included a chest x-ray which showed bibasilar infiltrates. Temperature was 39.1, potassium 3.6, magnesium 1.4, lactate 2.6, and WBC 15.71. He reports having drank 530 mg of caffeine and a 3-hour interval. The patient was started on ceftriaxone 2 g IV, azithromycin 5 mg p.o., and normal saline 2.5 L fluid bolus, and magnesium sulfate 2 g IV. He was then referred for evaluation [facility]. #Sepsis due to pneumonia -Ceftriaxone 2 g IV every 24 hours -Azithromycin 500 milligrams p.o. daily x3 minimum -DuoNebs every 2 hours as needed - Lactate normalized -Acetaminophen 650 mg by mouth every 6 hours as needed for mild pain or fever - Recurrent fever last night, CRP and Pro-Rafael have both increased significantly in the last 24 hours, clinically also had a fever. Monitoring closely for treatment failure with Rocephin and azithromycin - Otherwise tachycardia improved, lactic acid normalized, blood pressure stable, transfer to telemetry - Likely transition to oral medications and discharge tomorrow #Tachycardia -likely secondary to SIRS, continue to monitor, stable and improved at this time -Pressures stable #Hypomagnesemia -normalized #FEN -Normal diet #Dispo -1-2 days to transition or oral abx and follow cultures -The patient is [place] to be [place] new [place] 2 days on Friday. He was advised that even if he is discharged from the hospital and time to move, he should not be doing any heavy activity for at least a week after DC. Admission and Anticipated Discharge Date Admission Date: November 28, 2024 Subjective Doing okay this morning, moderate recurrence of symptoms last night when he had his fever. Otherwise he has been up and about feels the strength is little bit better in general feels better than he did when he came in. Endorses no significant increase in pain or erythema in the left lower extremity. States the inflammation feels like it is "a bit more than usual" otherwise no problem with intake, no problems with eliminations. No new or different symptoms. No events or other concerns per nursing Physical Exam Constitutional: Alert and oriented no apparent distress Eyes: Sclera clear ENMT: Mucous membranes moist Respiratory: Fine crackles at the right base otherwise clear to auscultation bilaterally with no wheezing Cardiovascular: Tachycardic, regular, no murmur Gastrointestinal (Abdomen): Normal bowel Skin: Chronic erythematous rash in the left lower quintana with chronic swelling is unchanged. Skin marking pen used to delineate the erythematous area Results & Data Results & Data Vital Signs (Past 12 Hours) Vital Signs Temp Pulse Pulse Resp BP Pulse Ox O2 Del Method 11/30/24 11:41 36.7 C 94 H 18 118/64 97 Room Air 11/30/24 08:20 Room Air 11/30/24 08:00 36.5 C 16 L 20 134/74 96 Room Air 11/30/24 07:00 76 11/30/24 02:42 38.6 C H 18 L 18 137/86 97 Room Air Laboratory Results 11/28/24 19:36 Aerobic Blood Culture - Preliminary Blood No growth in Aerobic bottle after 24 hours. Anaerobic Blood Culture - Preliminary No growth in Anaerobic bottle after 24 hours. 11/28/24 19:36 Aerobic Blood Culture - Preliminary Blood No growth in Aerobic bottle after 24 hours. Anaerobic Blood Culture - Preliminary No growth in Anaerobic bottle after 24 hours. 11/30/24 07:01 WBC 12.87 H RBC 4.62 L Hgb 12.4 L Hct 36.7 L MCV 79.4 L MCH 26.8 MCHC 33.8 RDW Std Deviation 41.6 RDW Coeff of Jessica 14.5 Plt Count 108 L MPV 10.4 Immature Gran % (Auto) 0.5 Neut % (Auto) 70.5 Lymph % (Auto) 18.2 [place] % (Auto) 9.8 Eos % (Auto) 0.7 Baso % (Auto) 0.3 Neut # (Auto) 9.08 H Lymph # (Auto) 2.34 [place] # (Auto) 1.26 H Eos # (Auto) 0.09 Baso # (Auto) 0.04 Immature Gran # (Auto) 0.06 Sodium 138 Potassium 3.8 Chloride 109 H Carbon Dioxide 25 Anion Gap 4 BUN 12 Creatinine 1.13 Est Cr Clr Drug Dosing 116.2 eGFR 82.71 BUN/Creatinine Ratio 10.6 Glucose 104 H Calcium 8.2 L Phosphorus 2.9 D Magnesium 2.0 C-Reactive Protein 13.55 H Albumin 3.6 Procalcitonin 11.60 H PG Care Time/CCT Total # of Minutes Spent Total Time Spent with Patient: Total time spent is greater than 50% in coordination of care (as documented) at patient's floor/unit and/or counseling patient: Coding Level of Care Code 13006 SUB INP/OBS CARE 2/35MIN Diagnoses Sepsis due to pneumonia J18.9; A41.9 Hypomagnesemia E83.42 Sinus tachycardia R00.0 Lactic acidosis E87.20
[2024-11-30 18:22] VITALS: O2SAT 98
[2024-11-30 19:37] VITALS: RESP 18
[2024-12-01 07:37] VITALS: BP 116/77; TEMP 98.4
[2024-12-01 07:39] LABS: Hematocrit (blood only) 36.9 % (42.0-52.0); Hemoglobin 12.9 g/dl (14.0-18.0); Immature Granulocytes # (auto) 0.04 K/uL (0.01-0.20); Immature Granulocytes % (auto) 0.4 %; Mean Corpuscular Hemoglobin 27.4 pg (25.0-34.0); Mean Corpuscular Volume 78.3 fL (80.0-100.0); Platelet Count 110 K/uL (130-400); RDW Standard Deviation 39.6 fL (36.4-46.3); Red Blood Count 4.71 M/uL (4.70-6.10); White Blood Count 9.05 K/ul (4.8-10.8)
[2024-12-01 08:18] LABS: Albumin Level 3.8 gm/dl (3.4-5.0); Anion Gap 6.0 (3-11); Bilirubin,Total 0.8 mg/dl (0.2-1.0); Calcium 8.6 mg/dl (8.6-10.3); Carbon Dioxide 24.0 mmol/L (21-32); Chloride 108.0 mmol/L (98-107); Magnesium 1.8 mg/dl (1.7-2.4); Potassium 3.9 mmol/L (3.5-5.1); Sodium 138.0 mmol/L (136-145)
[2024-12-01 08:31] LABS: Alanine Aminotransferase 27.0 U/L (7-52); Albumin Globulin Ratio 1.3 (0.9-2); Alkaline Phosphatase 58.0 U/L (34-104); Blood Urea Nitrogen 14.0 mg/dl (6-23); Creatinine Clr Calc Pharmacy 122.2 ml/min; Globulin 2.9 gm/dl (2.5-4.0); Glucose 87.0 mg/dl (70-99(Fasting)); Total Protein 6.7 gm/dl (6.0-8.3)
--- NOTE | 2024-12-01 10:10 | Discharge Summary ---
Discharge Summary Date of Service December 01, 2024 Principal Dx & Hospital Course #1 = Principal Diagnosis (1) Sepsis due to pneumonia: (2) Hypomagnesemia: (3) Sinus tachycardia: (4) Lactic acidosis: (5) CAP (community acquired pneumonia): Plan The patient is a 44-year-old male with no significant past medical history. The patient presented to the emergency department with acute onset of shakes, fevers, chills, headaches, palpitations, and feeling of almost passing out that developed earlier in the afternoon today. 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 He reports that he has had sick exposures recently. He denies any cough. He does have shortness of breath and dyspnea on exertion. He reports feeling somewhat improved after initial treatment in the emergency department. Workup in the emergency department included a chest x-ray which showed bibasilar infiltrates. Temperature was 39.1, potassium 3.6, ma gnesium 1.4, lactate 2.6, and WBC 15.71. He reports having drank 530 mg of caffeine and a 3-hour interval. The patient was started on ceftriaxone 2 g IV, azithromycin 5 mg p.o., and normal saline 2.5 L fluid bolus, and magnesium sulfate 2 g IV. [facility]. #[facility]epsis due to pneumonia #Community-acquired pneumonia - Initially quite significant SIRS response secondary to pneumonia. Patient was initiated on Rocephin and azithromycin on hospital day 2 had a recurrence of fever increase in inflammatory markers. Initial lactic acid 2.6, improve over 12h to 1.4 after fluid resuscitation patient clinically improved on hospital day 3 was appropriate for discharge to outpatient management. Transition to cefdinir oral for 4 additional days azithromycin for 2 additional #Tachycardia -Resolved #Hypomagnesemia -normalized #FEN -Normal diet Admission HPI Per Admitting Provider The patient is a 44-year-old male with no significant past medical history. The patient presented to the emergency department with acute onset of shakes, fevers, chills, headaches, palpitations, and feeling of almost passing out that developed earlier in the afternoon today. 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 He reports that he has had sick exposures recently. He denies any cough. He does have shortness of breath and dyspnea on exertion. He reports feeling somewhat improved after initial treatment in the emergency department. Workup in the emergency department included a chest x-ray which showed bibasilar infiltrates. Temperature was 39.1, potassium 3.6, magnesium 1.4, lactate 2.6, and WBC 15.71. He reports having drank 530 mg of caffeine and a 3-hour interval. The patient was started on ceftriaxone 2 g IV, azithromycin 5 mg p.o., and normal saline 2.5 L fluid bolus, and magnesium sulfate 2 g IV. He was then [facility] Discharge Exam Constitutional Awake and alert, no apparent distress Eyes sclera clear ENMT mucous membranes moist Respiratory good air movement throughout, clear to auscultation bilaterally Cardiovascular regular rate and rhythm no murmurs rubs or gallops Gastrointestinal (Abdomen) nontender, nondistended, normal bowel Skin moderate erythematous/hyperemic patch on the lower left extremity chronic in nature unchanged Discharge Plan Discharge Items Patient Disposition: Home - Self-Care Reason For Visit: SEPSIS DUE TO PNEUMONIA, HYPOMAGNESEMIA Discharge Diagnosis: CAP Condition on Discharge: Fair Activity: Resume your previous activity Lifting: Gradually increase as tolerated Non-emergency contact: Primary Care Provider Call non-emergency contact if: you have any medication questions, your symptoms worsen, you have a fever and your temperature is above 101 Follow-up/Referrals: Rishabh Mathews MD [Primary Care Provider] - Diet: Regular Addtl Attending Provider Instructions: Take the omnicef for 4 additional days Take the azithromycin for 2 additional days Start and over the counter probiotic such as culturelle for 1 to 2 weeks after Pending Studies at Discharge: No Stand-Alone Forms: My [facility], Smoking Cessation Medications and DC Order Prescriptions: New azithromycin 250 mg tablet 250 mg PO DAILY 2 Days Qty: 2 0RF cefdinir 300 mg capsule 300 mg PO BID 4 Days Qty: 8 0RF Probiotic 20 billion cell capsule 20,000 mmu cells PO DAILY Qty: 30 0RF Rx Instructions: administer with a meal Continued multivitamin Capsule 1 cap PO DAILY Discharge Orders: Discharge Order (Routine); Ordered 12/01/24 Ordered By: Jules Raines/Other Patient Handouts: When You Have Pneumonia Admission Data Admit Date/Time: 11/28/24 21:08 Attending Provider: Jules Modi Admit Provider: Dayron Knox Primary Care Provider: Rishabh Mathews Other Providers: Dayron Knox Hospital Stay Data Consultations 11/28/24 20:26 ED Decision to Admit Stat Diagnostic Imagining Performed 11/28/24 18:36 CT head/brain wo con Stat Pending Results Patient Have Any Pending Studies at Discharge: No Discharge Instructions Given to Patient (Per Discharging Provider) Take the omnicef for 4 additional days Take the azithromycin for 2 additional days Start and over the counter probiotic such as culturelle for 1 to 2 weeks after Total Time Total Time Spent Total Time Spent (In Minutes): 25 minutes spent reviewing follow-up plan with the patient, discharge medication arrangements and coordination of care Coding Level of Care Code 11351 IN/OBS DISCH 30 MIN/LESS Diagnoses Sepsis due to pneumonia J18.9; A41.9 Hypomagnesemia E83.42 Sinus tachycardia R00.0 Lactic acidosis E87.20 CAP (community acquired pneumonia) J18.9
[2024-12-01 10:18] VITALS: PULSE 65
== END 2024-12-01 11:54 | disposition home or self-care (01) | DRG 871 ==
LOC: ED 18:00 → EDINP 21:08 → SUATTDRO 21:08 → 2E 21:39 → 2W 11-30 18:12